=== PATIENT | female | born 1965 | race Caucasian/White ===

== ENCOUNTER 2017-01-02 18:47 | Emergency (ER) | payer SELFPAY ==
[2017-01-02] MEDS ORDERED: HYDROmorphone HCL INJ 2 MG/ML VIAL IV ONE (19:39)
--- NOTE | 2017-01-02 19:41 | ED.PDOC ---
History of Present Illness - General Chief Complaint: Abdominal Pain Stated Complaint: RUQ PAIN Time Seen by Provider: 01/02/17 19:32 Information Source: patient Exam Limitations: no limitations Additional Information: STARTED TODAY WHILE ASLEEP. ALREADY HAD GB OUT. STILL HAS APPENDIX. HAS NEP C AND CIRRHOSIS. TOOK HER HOME OXYCODONE (W/O TYLENOL), DID NOT HELP. - History of Present Illness Abdominal Pain Onset Location: RUQ Pain Radiation: no radiation Quality: severe Improving Factors: nothing Worsening Factors: nothing Review of Systems - Review of Systems Constitutional: Denies: diaphoresis, fever EENTM: States: no symptoms reported Respiratory: States: no symptoms reported Cardiology: States: no symptoms reported Gastrointestinal/Abdominal: States: abdominal pain. Denies: constipation, diarrhea, nausea, vomiting Genitourinary: States: no symptoms reported Musculoskeletal: States: no symptoms reported Skin: States: no symptoms reported Neurological: States: no symptoms reported Endocrine: States: no symptoms reported Hematologic/Lymphatic: States: no symptoms reported All other Systems: Reviewed and Negative Past Medical History (General) - Patient Medical History Hx Seizures: No Hx Stroke: No Hx Asthma: No Hx of COPD: No Hx Cardiac Disorders: No Hx Congestive Heart Failure: No Hx Pacemaker: No Hx Hypertension: No Hx Diabetes: No Hx Hepatitis C: Yes Hx MRSA: No - Vaccination History Hx Influenza Vaccination: No Hx Pneumococcal Vaccination: No - Social History Hx Tobacco Use: No Hx Alcohol Use: No Hx Substance Use: No Hx Physical Abuse: No Hx Emotional Abuse: No - Female History Patient is a Female of Child Bearing Age (10 -59 yrs old): Yes Patient : No Family Medical History - Family History Mother Family History: Unknown Physical Exam - Physical Exam General Appearance: Alert, Obese, Other - UNCOMFORTABLE Eyes, Ears, Nose, Throat Exam: PERRL/EOMI, normal ENT inspection Neck: non-tender, full range of motion Respiratory: chest non-tender, lungs clear Cardiovascular/Chest: normal peripheral pulses, regular rate, rhythm Gastrointestinal/Abdominal: normal bowel sounds, soft, no organomegaly, other - RUQ TTP. RLQ AND REMAINDER OF ABD NTTP. NO G/R. Back Exam: normal inspection Extremity: normal range of motion, non-tender Neurologic: sales representative facility services II-XII nml as tested, oriented x 3 Skin Exam: normal color, warm/dry Lymphatic: no adenopathy Progress - Results/Orders Results/Orders: CT = KNOWN CIRRHOSIS, PORTAL VARICES, SPLENOMEGALY. NOTHING SURGICAL OR TO EXPLAIN THE PT'S PAIN. I RECOMMENDED TO THE PT TO F/U WITH HER PCP AND LIVER DR AND CONTINUE WORKING WITH THEM ON PAIN CONTROL. CBC, CMP, AU - THROMBOCYTOPENIA, GIVEN HER LIVER IS CIRRHOTIC. PT STATES SHE IS ALMOST OUT OF OXYCODONE, SO I WILL GIVE TRAMADOL, DOSED FOR CIRRHOSIS. Departure - Departure Clinical Impression: Cirrhosis of liver, Hepatitis C carrier, Splenomegaly, Thrombocytopenia Disposition: Discharge to Home or Self Care Condition: Fair Departure Forms: ED Discharge - Pt. Copy, Patient Portal Self Enrollment Instructions: DI for Abdominal Pain-Adult Diet: resume usual diet Activity: increase activity as tolerated Referrals: KENNETH HOWELL IV, [employer] [Primary Care Provider] - 1-2 Days Prescriptions: Tramadol HCl [Ultram] 50 mg PO Q12HR PRN #15 tab PRN Reason: Pain Home Medications: Ambulatory Orders Oxycodone HCl 20 mg PO Q6H PRN 05/26/15 Ondansetron HCl [Zofran] 4 mg PO Q6H PRN 01/02/17 Propranolol HCl 20 mg PO DAILY 01/02/17 Tramadol HCl [Ultram] 50 mg PO Q12HR PRN #15 tab 01/02/17
[2017-01-02] MEDS ORDERED: HYDROmorphone HCL INJ 2 MG/ML VIAL IM ONE ×2 (20:05→23:23)
[2017-01-02 22:31] VITALS: TEMP 98.9
[2017-01-02 23:21] VITALS: BP 142/88; O2SAT 98
--- NOTE | 2017-01-23 23:54 | CT ---
EXAM: Abdoment/Pelvis w/o Contrast CLINICAL INDICATION: 51-year-old female with RIGHT upper quadrant pain, cirrhosis and hepatitis C. COMPARISON: 04/18/2015 EXAMINATION: CT of the abdomen and pelvis was performed without intravenous or oral contrast. Multiplanar reformatted images were provided. FINDINGS: Evaluation of solid organ pathology is limited secondary to lack of intravenous contrast. Within these limitations, the following observations are made. Chest: Evaluation through the lung bases reveals no focal opacity, pleural effusion or pneumothorax. Heart size is within normal limits. No pericardial effusion. Abdomen and pelvis: The pancreas, spleen, bilateral kidneys and bilateral adrenal glands are within normal limits. Surgical clips present at the level of the gallbladder fossa status post cholecystectomy. Lobulated morphology of the liver compatible with the patient's history of cirrhosis. Enlarged appearance of the spleen compatible with splenomegaly measuring up to 16.9 cm. Innumerable varices within the upper abdomen compatible with cirrhosis and may be seen in the setting of portal hypertension. Slight nonspecific thickening of the distal esophagus. The vessels are normal in caliber. Focal area of calcification measuring approximately 9 mm at the level of the splenic hilum raising the question of aneurysm or pseudoaneurysm. No abdominopelvic lymph nodes are noted to be pathologically enlarged by CT measurement criteria. The bowel is within normal limits with extensive fecal debris present throughout the large bowel. There is no abnormal bowel wall thickness or bowel dilation. No free air. No free abdominopelvic fluid collections. The appendix is identified. The osseous structures are within normal limits. IMPRESSION: 1. No specific acute intra-abdominal findings are noted to suggest etiology of the patient's abdominal pain.2. Cirrhosis and splenomegaly as detailed above.3. Additional nonemergent findings as detailed above. Electronically signed by: Angelica Perez MD 01/02/2017 8:35 PM LINE DIRECTOR
== END 2017-01-02 23:47 | disposition home or self-care (01) ==
LOC: ER 18:47
DX: K74.60 Unspecified cirrhosis of liver (principal); B19.20 Unspecified viral hepatitis C without hepatic coma; R16.1 Splenomegaly, not elsewhere classified; D69.6 Thrombocytopenia, unspecified
CPT/HCPCS: 36415; 74176; 80053; 81001; 83690; 85025; J1170

== ENCOUNTER 2018-06-07 17:02 | Emergency (ER) | payer SELFPAY ==
--- NOTE | 2018-06-07 17:48 | ED.PDOC ---
History of Present Illness - General Chief Complaint: Abdominal Pain Time Seen by Provider: 06/07/18 17:13 Source: patient Exam Limitations: no limitations - History of Present Illness Initial Comments: the patient is a 53-year-old female presenting to the emergency room secondary to a feeling of abdominal distention and fullness because she has not had a bowel movement in a week. She does have chronic constipation and she does have hepatitis C. She does have chronic pain. She reports that she normally only has one to 2 bowel movements per week. No bleeding. No falls. No altered mental status. She has not taken any laxatives in the last 2 weeks. She has not been on lactulose before. Timing/Duration: 1 week Severity: moderate Improving Factors: nothing Worsening Factors: nothing Associated Symptoms: denies symptoms Allergies/Adverse Reactions: Allergies Morphine Adverse Reaction (Intermediate, Verified 05/26/15 03:42) Home Medications: Ambulatory Orders Oxycodone HCl 20 mg PO Q6H PRN 05/26/15 Ondansetron HCl [Zofran] 4 mg PO Q6H PRN 01/02/17 Propranolol HCl 20 mg PO DAILY 01/02/17 Tramadol HCl [Ultram] 50 mg PO Q12HR PRN #15 tab 01/02/17 Lactulose (Encephalopathy) [Lactulose] 20 gm PO DAILY PRN #400 ml 06/07/18 Review of Systems - Review of Systems Constitutional: States: malaise EENTM: States: no symptoms reported Respiratory: States: no symptoms reported Cardiology: States: no symptoms reported Gastrointestinal/Abdominal: States: see HPI, abdominal pain, constipation, nausea. Denies: diarrhea, vomiting Genitourinary: States: no symptoms reported Musculoskeletal: States: no symptoms reported Skin: States: no symptoms reported Neurological: States: anxiety Endocrine: States: no symptoms reported All other Systems: No Change from Baseline Past Medical History (General) - Patient Medical History Hx Seizures: No Hx Stroke: No Hx Asthma: No Hx of COPD: No Hx Cardiac Disorders: No Hx Congestive Heart Failure: No Hx Pacemaker: No Hx Hypertension: No Hx Diabetes: No Hx Hepatitis C: Yes Hx MRSA: No - Vaccination History Hx Influenza Vaccination: No Hx Pneumococcal Vaccination: No - Social History Hx Tobacco Use: No Hx Alcohol Use: No Hx Substance Use: No Hx Physical Abuse: No Hx Emotional Abuse: No - Female History Patient : No Family Medical History - Family History Mother Family History: Unknown Physical Exam - Physical Exam General Appearance: Alert, No apparent distress Eye Exam: bilateral normal Ears, Nose, Throat: hearing grossly normal, normal ENT inspection, normal pharynx Neck: full range of motion, supple Respiratory: lungs clear, normal breath sounds, no respiratory distress, no accessory muscle use Cardiovascular/Chest: normal peripheral pulses, regular rate, rhythm, no edema Peripheral Pulses: radial,right: 2+, radial,left: 2+, dorsalis pedis,right: 2+, dorsalis pedis,left: 2+ Gastrointestinal/Abdominal: soft, other - abdomen is moderately distended. Diffuse discomfort palpation but no rebound or peritoneal signs. Rectal Exam: deferred Back Exam: normal inspection, no CVA tenderness Extremity: normal range of motion, non-tender, normal inspection, no pedal edema , normal capillary refill Neurologic: regional account executive II-XII nml as tested, alert, normal mood/affect, oriented x 3 Skin Exam: normal color Progress - Progress Progress: 06/07/18 18:38 The patient is a 53-year-old female presenting to the emergency room secondary to constipation of a week's duration. The patient was given a dose of lactulose here. Abdominal x-ray shows no evidence of any obstruction. She' ll be written for lactulose for as needed use daily to twice daily to have a bowel movement 3-4 times a week. She needs to follow up with her primary care doctor in a few days for reevaluation of her chronic pain issues as well as for the functionality of this medication for her. ER warnings are given for significant worsening. Departure - Departure Clinical Impression: Constipation Qualifiers: Constipation type: unspecified constipation type Qualified Code(s): K59.00 - Constipation, unspecified Disposition: Discharge to Home or Self Care Condition: Fair Departure Forms: ED Discharge - Pt. Copy, Patient Portal Self Enrollment Instructions: DI for Abdominal Pain-Adult Diet: regular diet - high-fiber Activity: increase activity as tolerated Referrals: KENNETH HOWELL IV SALES [employer] [Primary Care Provider] - 1-5 Days Prescriptions: Lactulose (Encephalopathy) [Lactulose] 20 gm PO DAILY PRN #400 ml PRN Reason: Constipation Home Medications: Ambulatory Orders Oxycodone HCl 20 mg PO Q6H PRN 05/26/15 Ondansetron HCl [Zofran] 4 mg PO Q6H PRN 01/02/17 Propranolol HCl 20 mg PO DAILY 01/02/17 Tramadol HCl [Ultram] 50 mg PO Q12HR PRN #15 tab 01/02/17 Lactulose (Encephalopathy) [Lactulose] 20 gm PO DAILY PRN #400 ml 06/07/18 Additional Instructions: The patient is a 53-year-old female presenting to the emergency room secondary to constipation of a week's duration. The patient was given a dose of lactulose here. Abdominal x-ray shows no evidence of any obstruction. She' ll be written for lactulose for as needed use daily to twice daily to have a bowel movement 3-4 times a week. She needs to follow up with her primary care doctor in a few days for reevaluation of her chronic pain issues as well as for the functionality of this medication for her. ER warnings are given for significant worsening.
--- NOTE | 2018-06-07 17:51 | RAD ---
PROCEDURE: Abdomen Series HISTORY: no bm in 1 wk, chronic liver disease. COMPARISON: Same as above . TECHNIQUE: 2.0 views of the abdomen and pelvis and 1.0 view of the chest, all projections in the frontal projection. FINDINGS: There are no discrete airspace infiltrates, pneumothoraces or pleural effusions. The pulmonary vascularity is normal. The cardiomediastinal silhouette is within normal limits, for patient's age and sex. The bowel gas pattern does not show any evidence of obstruction, ileus, or bowel wall thickening. There is no gross evidence of free air in the abdomen or the pelvis. There is no visualization of radiopaque calculi in the outline of the urinary tract. There is prior cholecystectomy. 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 There is no significant constipation . IMPRESSION: Nonobstructive and nonspecific bowel gas pattern. There are no acute findings in the chest There is no significant constipation . Location of Interpretation: [id number] Electronically signed by: Young Orantes MD 06/07/2018 5:50 PM CDT Workstation: [id number]
[2018-06-07] MEDS ORDERED: LACTULOSE SYRUP 20 GM/30 ML UD PO ONE (18:01)
[2018-06-07 18:34] VITALS: O2SAT 99
[2018-06-07 18:56] VITALS: BP 157/85; TEMP 98.7
== END 2018-06-07 18:55 | disposition home or self-care (01) ==
LOC: ER 17:02
DX: K59.00 Constipation, unspecified (principal)

== ENCOUNTER → 2021-01-23 | Outpatient (CLI) | payer OTHER | LOC: YCFC.O 11:44 | PROVIDERS: ATTEND Nurse Practitioner Family | DX: Z20.828 Contact with and (suspected) exposure to other viral communicable diseases (principal) ==